=== PATIENT | female | born 1985 | race Caucasian/White ===

== ENCOUNTER → 2021-09-04 02:58 | Outpatient (CLI) | payer BC, SELFPAY ==
[2021-09-04 21:06] LABS: SARS-CoV-2 RNA PCR Negative
== END ==
PROVIDERS: PCP Nurse Practitioner Adult Health; Visit Provider Nurse Practitioner Adult Health
DX: Z20.822 Contact with and (suspected) exposure to COVID-19 (principal)
CPT/HCPCS: C9803; U0003; U0005

== ENCOUNTER → 2021-09-10 02:19 | Outpatient (CLI) | payer BC, SELFPAY ==
[2021-09-10 20:10] LABS: SARS-CoV-2 RNA PCR Negative
== END ==
PROVIDERS: PCP Nurse Practitioner Adult Health; Visit Provider Nurse Practitioner Adult Health
DX: Z20.822 Contact with and (suspected) exposure to COVID-19 (principal)
CPT/HCPCS: C9803; U0003; U0005

== ENCOUNTER 2022-12-20 14:59 | Emergency (ER) | payer OTHER, SELFPAY ==
--- NOTE | 2022-12-20 15:11 | ED.URI ---
HPI - URI/Sore Throat General Chief Complaint: Upper Respiratory Infection Stated Complaint: Cough/Throat/Bodyaches Source: patient and RN notes reviewed History of Present Illness HPI Narrative: 37-year-old female presents to urgent care complaints of a sore throat and feeling ill. Patient states it started yesterday. Patient states her son at home is currently being treated for strep throat. Patient denies any known fevers at home. Denies any melena, congestion, ear pain, chest pain, or shortness of breath. Patient has taken Tylenol at home. Some parts of this dictation were generated by voice recognition software and may contain typographical and/or grammatical inaccuracies. Related Data Home Medications Medication Instructions Recorded Confirmed escitalopram oxalate 10 mg tablet 10 mg PO DAILY 12/20/22 12/20/22 hydroxyzine HCl 25 mg tablet 25 mg PO DIRECTED 12/20/22 12/20/22 Allergies Allergy/AdvReac Type Severity Reaction Status Date / Time nifedipine Allergy Unknown Unknown Verified 12/20/22 15:01 Review of Systems Review of Systems: Pertinent positives and pertinent negatives per HPI. PMFSH Comments At the time of my signature, I reviewed and agree with the nursing past medical, surgical, social, and family history. There is no relevant family history pertinent to the patient complaint. Exam Narrative: GENERAL: This is a well-nourished, well-developed patient, in no apparent distress. HEAD: normocephalic, atraumatic. EYES: Sclera clear/white. Vision is grossly intact. EARS: External ears normal, auditory canals clear and without drainage, TMs normal without perforation. Hearing grossly intact. NOSE: External nose normal with no obvious nasal discharge, nares without redness, no rhinorrhea. THROAT: Mucous membranes moist, posterior pharynx erythremic. NECK: Neck supple, non-tender without lymphadenopathy, m goasses or thyromegaly. CARDIOVASCULAR: Regular rate and rhythm without murmurs, gallops, or rubs. RESPIRATORY: Clear to auscultation. Breath sounds equal bilaterally. No wheezes, rales, or rhonchi. SKIN: warm, intact with no suspicious lesions or rash, good texture and turgor. NEURO: awake, alert, and oriented to person, place and time. There were no obvious focal neurologic abnormalities. Course Course Level of Care: Express Care Visit Vital Signs Vital signs: Vital Signs Temperature 98.5 F 12/20/22 15:20 Pulse Rate 88 12/20/22 15:20 Respiratory Rate 16 12/20/22 15:20 Blood Pressure 113/66 12/20/22 15:20 Pulse Oximetry 100 12/20/22 15:20 Oxygen Delivery Room Air 12/20/22 15:20 Temperature 98.5 F 12/20/22 15:20 Pulse Rate 88 12/20/22 15:20 Respiratory Rate 16 12/20/22 15:20 Blood Pressure 113/66 12/20/22 15:20 Pulse Oximetry 100 12/20/22 15:20 Oxygen Delivery Room Air 12/20/22 15:20 Reviewed MDM - URI/Sore Throat MDM Narrative Medical decision making narrative: Rapid strep is negative in the office; however we will send to the lab for confirmation; there is a small percentage chance that it can come back positive; if it is, we will call you in 2-3days; and your prescription will be call in to your pharmacy. However, there is NO indication for antibiotic at this time. -Increase your fluids and Vitamin C. -Oral rinses such as: Salt water gargles and/or may use topical anesthetic (eg. Chloraseptic spray) or lozenges to relieve dryness or throat pain. -Take tylenol and ibuprofen as needed for pain and fever as directed. -Frequent hand washing or hand a operator is one of the best ways to prevent spread of infection. -Follow up with primary care provider in 2-3 days if condition is not improving or seek ER visit if your child starts breathing fast/has trouble breathing, is not drinking enough fluids, muffle voice, difficulty opening the mouth or will not wake up or will not interact with you. Differential Diagnosis Differential diagnosis: Lik
[2022-12-20 15:20] VITALS: BP 113/66; PULSE 88; RESP 16; TEMP 36.9; O2SAT 100
== END 2022-12-20 15:45 | disposition home or self-care (01) ==
PROVIDERS: Emergency Provider Nurse Practitioner Family; PCP Nurse Practitioner Family
DX: J02.9 Acute pharyngitis, unspecified (principal); F41.9 Anxiety disorder, unspecified; F32.A Depression, unspecified
CPT/HCPCS: 87081; 87880; 99213; G0463

== ENCOUNTER 2023-05-23 17:08 | Emergency (ER) | payer OTHER, SELFPAY ==
[2023-05-23 17:21] VITALS: BP 125/98; PULSE 106; RESP 16; TEMP 36.7; O2SAT 100
--- NOTE | 2023-05-23 17:34 | ED.URI ---
HPI - URI/Sore Throat General Chief Complaint: Upper Respiratory Infection Stated Complaint: Strep symptoms Time Seen by Provider: 05/23/23 17:34 Source: patient Mode of arrival: ambulatory Limitations: no limitations History of Present Illness HPI Narrative: 37-year-old female presents with complaint of sore throat, nasal congestion, postnasal drainage, headache and body aches for the past 3 days. Patient reports that she took a COVID test on the way here in her car and it was negative. Patient concerned that she has strep throat. Afebrile. Denies nausea vomiting. Taking [id number] cold medication to treat her symptoms. Patient states that symptoms are getting progressively worse. All systems reviewed and negative except as noted above. Related Data Allergies Allergy/AdvReac Type Severity Reaction Status Date / Time nifedipine Allergy Unknown Unknown Verified 05/23/23 17:16 Review of Systems Review of Systems: CONSTITUTIONAL: Denies fever, chills, or sweats. Reports fatigue. EYES: Denies visual changes, redness, or discharge. ENT:. Reports rhinorrhea, congestion, sore throat, postnasal drainage. Denies otalgia. CARDIOVASCULAR: Denies chest pain, palpitations, or edema. RESPIRATORY: Denies cough or dyspnea. GASTROINTESTINAL: Denies abdominal pain, nausea, vomiting, or diarrhea. GENITOURINARY: Denies dysuria or hematuria. SKIN: Denies rash or itching. MUSCULOSKELETAL: Denies back pain, joint pain. Reports myalgia. NEUROLOGIC: Denies headache, numbness, or weakness. PSYCHIATRIC: Denies anxiety or depression. All other systems reviewed are negative, except as documented in HPI. PMFSH Comments At time of signature, agree with nursing past medical, surgical, social and family history. There is no relevant family history pertinent to the presenting complaint. Exam Narrative: GENERAL: This is a well-nourished, well-developed patient, patient ill-appearing but in no acute distress. HEAD: normocephalic, atraumatic. EYES: PERRL. Sclera clear/white. Vision is grossly intact. EARS: External ears normal, auditory canals clear and without drainage, TMs normal without perforation. Hearing grossly intact. NOSE: External nose normal with no obvious nasal discharge, nares without redness, no rhinorrhea. THROAT: Mucous membranes moist, erythema to posterior pharynx with postnasal drainage. No swelling or exudates. NECK: Neck supple, non-tender without lymphadenopathy, masses or thyromegaly. CARDIOVASCULAR: Regular rate and rhythm without murmurs, gallops, or rubs. RESPIRATORY: Clear to auscultation. Breath sounds equal bilaterally. No wheezes, rales, or rhonchi. SKIN: warm, Dry, intact with no suspicious lesions or rash, good texture and turgor. NEURO: awake, alert, and oriented to person, place and time. There were no obvious focal neurologic abnormalities. EXTREMITIES: No joint tenderness, effusion, or edema noted. Course Course Level of Care: Express Care Visit Vital Signs Vital signs: Vital Signs Temperature 36.7 C 05/23/23 17:21 Pulse Rate 106 H 05/23/23 17:21 Respiratory Rate 16 05/23/23 17:21 Blood Pressure 125/98 H 05/23/23 17:21 Pulse Oximetry 100 05/23/23 17:21 Temperature 36.7 C 05/23/23 17:21 Pulse Rate 106 H 05/23/23 17:21 Respiratory Rate 16 05/23/23 17:21 Blood Pressure 125/98 H 05/23/23 17:21 Pulse Oximetry 100 05/23/23 17:21 Reviewed MDM - URI/Sore Throat MDM Narrative Medical decision making narrative: Patient is aware of diagnosis, understands and agrees to treatment plan. Anticipatory guidance given. Patient agrees to follow-up as directed and is aware of reasons to seek care at the emergency department. Portions of this record may have been created with voice recognition software Negative rapid strep test. Recommend patient continue to treat her symptoms with [id number] medications. Patient states that she would really like an antibiotic to t
== END 2023-05-23 17:46 | disposition home or self-care (01) ==
PROVIDERS: Emergency Provider Nurse Practitioner Family; PCP Nurse Practitioner Family
DX: J02.9 Acute pharyngitis, unspecified (principal)
CPT/HCPCS: 87081; 87880; 99213; G0463